=== PATIENT | female | born 1990 | race American Indian/Alaskan Native ===

== ENCOUNTER 2020-05-21 18:07 | Emergency (ER) | payer MEDICAID ==
--- NOTE | 2020-05-21 19:13 | EDM.PDOC ---
ED HPI GENERAL MEDICAL PROBLEM - General Chief Complaint: Skin Complaint Stated Complaint: PAINFUL LUMP UNDER LEFT ARM Time Seen by Provider: 05/21/20 19:12 Source of Information: Reports: Patient, RN, RN Notes Reviewed History Limitations: Reports: No Limitations - History of Present Illness INITIAL COMMENTS - FREE TEXT/NARRATIVE: Patient is a 30-year-old female who presents to ER with complaint of a red painful lump under the left armpit. Patient states she noticed it last night. States she has had 1 in the past under one of her breasts which her primary care provider did open up and drain. Patient denies any fever or chills, nausea vomiting, diarrhea. Patient denies any history of MRSA that she is aware of. States only allergy is to codeine. Onset Date: 05/20/20 Left Axillary Pain Score (Numeric/FACES): 9 - Related Data Allergies Allergy/AdvReac Type Severity Reaction Status Date / Time codeine Allergy Cannot Verified 05/21/20 18:18 Remember Home Meds: Home Meds lamoTRIgine [Lamotrigine] 100 mg PO BID 05/21/20 [History] Past Medical History Neurological History: Reports: Seizure Psychiatric History: Reports: Depression - Infectious Disease History Infectious Disease History: Reports: None Social & Family History - Tobacco Use Tobacco Use Status *Q: Never Tobacco User - Caffeine Use Caffeine Use: Reports: Tea - Recreational Drug Use Recreational Drug Use: No ED ROS GENERAL - Review of Systems Review Of Systems: Comprehensive ROS is negative, except as noted in HPI. ED EXAM, SKIN/RASH Exam: See Below Exam Limited By: No Limitations General Appearance: Alert, WD/WN, No Apparent Distress Eye Exam: Bilateral Eye: EOMI, Normal Inspection Ears: Normal External Exam, Hearing Grossly Normal Nose: Normal Inspection Throat/Mouth: Normal Inspection, Normal Voice, No Airway Compromise Head: Atraumatic, Normocephalic Neck: Normal Inspection, Supple, Non-Tender, Full Range of Motion Respiratory/Chest: No Respiratory Distress, Lungs Clear, Normal Breath Sounds, No Accessory Muscle Use, Chest Non-Tender Cardiovascular: Normal Peripheral Pulses, Regular Rate, Rhythm, No Edema, No Gallop, No JVD, No Murmur, No Rub Peripheral Pulses: 2+: Radial (L), Radial (R) GI/Abdominal: Normal Bowel Sounds, Soft, Non-Tender (Female) Exam: Deferred Rectal (Female) Exam: Deferred Back Exam: Normal Inspection, Full Range of Motion Extremities: Normal Inspection, Normal Range of Motion, Non-Tender, No Pedal Edema, Normal Capillary Refill Neurological: Alert, Oriented, CN II-XII Intact, Normal Cognition, Normal Gait, Normal Reflexes, No Motor/Sensory Deficits Psychiatric: Normal Affect, Normal Mood Skin: Warm, Dry, Normal Color, No Rash, Other (0.5cm abscess to left axillary area) Location, Skin: Upper Extremity, Left Associated features: Warmth, Tenderness Lymphatic: No Adenopathy ED SKIN PROCEDURES - I&D Site: left axillary Skin Prep: Chlorhexidine (Hibiciens) Local Anesthesia: Lidocaine: Other (none) Area Incised With: Other (manual pressure) Drainage: Purulent, Moderate Amount Probed to Break Up Loculations: Yes Packed With: None Sterile Dressing: Other (bandage) Complications: No Course - Vital Signs Last Recorded V/S: Last Vital Signs Temp 97 F 05/21/20 18:14 Pulse 72 05/21/20 18:14 Resp 16 05/21/20 18:14 BP 104/54 L 05/21/20 18:14 Pulse Ox 100 05/21/20 18:14 Departure - Departure Time of Disposition: 19:20 Disposition: Home, Self-Care 01 Condition: Good Clinical Impression: Abscess - Discharge Information *PRESCRIPTION DRUG MONITORING PROGRAM REVIEWED*: No *COPY OF PRESCRIPTION DRUG MONITORING REPORT IN PATIENT POOJA: No Instructions: Skin Abscess, [id number] Forms: ED Department Discharge Additional Instructions: Keep area clean and dry May use over the counter antibiotic ointment to the area If it appears to be getting larger, worse, more painful, you may start antibiotics Follow up with your primary care facility if no improvement Sepsis Event Note (ED) - Evaluation Sepsis Screening Result: No Definite Risk - Focused Exam Vital Signs: Vital Signs Temp Pulse Resp BP Pulse Ox 05/21/20 18:14 97 F 72 16 104/54 L 100
== END 2020-05-21 19:41 | disposition home or self-care (01) ==
LOC: DL.ED 18:07
DX: L02.412 Cutaneous abscess of left axilla (principal); R56.9 Unspecified convulsions; Z79.899 Other long term (current) drug therapy; Z88.5 Allergy status to narcotic agent
CPT/HCPCS: 87070; 99283

== ENCOUNTER 2020-06-13 17:25 | Emergency (ER) | payer MEDICAID ==
--- NOTE | 2020-06-13 19:27 | EDM.PDOC ---
ED HPI GENERAL MEDICAL PROBLEM - General Chief Complaint: Chemical Exposure Stated Complaint: CHEMICALS INHAILED AT WORK Time Seen by Provider: 06/13/20 19:05 Source of Information: Reports: Patient, RN History Limitations: Reports: No Limitations - History of Present Illness INITIAL COMMENTS - FREE TEXT/NARRATIVE: ED with c/o congestion and sorethroat patrick Thursday. 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 Also rash on arms. States wearing make and gloves with use. - Related Data Allergies Allergy/AdvReac Type Severity Reaction Status Date / Time codeine Allergy Cannot Verified 06/13/20 17:51 Remember Home Meds: Home Meds lamoTRIgine [Lamotrigine] 100 mg PO BID 05/21/20 [History] Past Medical History Neurological History: Reports: Seizure Psychiatric History: Reports: Depression - Infectious Disease History Infectious Disease History: Reports: None Social & Family History - Tobacco Use Tobacco Use Status *Q: Never Tobacco User Second Hand Smoke Exposure: No - Caffeine Use Caffeine Use: Reports: Coffee, Energy Drinks - Recreational Drug Use Recreational Drug Use: No ED ROS GENERAL - Review of Systems Review Of Systems: Comprehensive ROS is negative, except as noted in HPI. ED EXAM, BURN/SMOKE INHALATION - Physical Exam Exam: See Below Exam Limited By: No Limitations General Appearance: Alert, No Apparent Distress Eye Exam: Bilateral Eye: EOMI, PERRL Ears (Abbreviated): Normal External Exam, Normal TMs Mouth/Throat: No: Oral Inflammation, Oral Ulcers, Tongue Swelling, Tonsillar Exudates Head: No Symptoms Neck: No Symptoms Respiratory: No Respiratory Distress, Lungs Clear, Normal Breath Sounds Cardiovascular: Normal Peripheral Pulses, Regular Rate, Rhythm GI/Abdominal: Normal Bowel Sounds Extremities: Normal Inspection Neurological: Alert, Oriented Psychiatric: Normal Affect Skin Exam: Warm, Dry, Rash (light red raised rash bilateral inner forearms above glove line, 3mm x 3cm .) Course - Vital Signs Last Recorded V/S: Last Vital Signs Temp 98.3 F 06/13/20 17:51 Pulse 94 06/13/20 17:51 Resp 16 06/13/20 17:51 BP 119/58 L 06/13/20 17:51 Pulse Ox 96 06/13/20 17:51 - Orders/Labs/Meds Orders: Active Orders 24 hr Category Date Time Status CULTURE STREP A CONFIRMATION [RM] Stat Lab 06/13/20 19:00 Results STREP SCRN A RAPID W CULT CONF [RM] Stat Lab 06/13/20 19:00 Results Departure - Departure Time of Disposition: 19:24 Disposition: Home, Self-Care 01 Condition: Good Clinical Impression: Congestion of nasal sinus, Exposure to chemical irritant - Discharge Information *PRESCRIPTION DRUG MONITORING PROGRAM REVIEWED*: No *COPY OF PRESCRIPTION DRUG MONITORING REPORT IN PATIENT POOJA: No Instructions: Chemical Inhalation Injury, Adult Forms: ED Department Discharge Additional Instructions: Wear mask when around chemicals trial over counter allergy medication for congestion , similar to Loratadine per label instructions good hand washing always wear gloves if using chemical clinic follow up as needed Sepsis Event Note (ED) - Evaluation Sepsis Screening Result: No Definite Risk - My Orders Last 24 Hours: My Active Orders 06/13/20 19:00 CULTURE STREP A CONFIRMATION [RM] Stat STREP SCRN A RAPID W CULT CONF [RM] Stat - Assessment/Plan Last 24 Hours: My Active Orders 06/13/20 19:00 CULTURE STREP A CONFIRMATION [RM] Stat STREP SCRN A RAPID W CULT CONF [RM] Stat
== END 2020-06-13 19:47 | disposition home or self-care (01) ==
LOC: DL.ED 17:25
DX: R09.81 Nasal congestion (principal); R06.7 Sneezing; R05 Cough; R21 Rash and other nonspecific skin eruption; Z77.098 Contact with and (suspected) exposure to other hazardous, chiefly nonmedicinal, chemicals; Z88.5 Allergy status to narcotic agent
CPT/HCPCS: 87081; 87430; 99283

== ENCOUNTER 2021-09-27 03:48 | Emergency (ER) | payer MEDICAID ==
[2021-09-27] MEDS ORDERED: Ondansetron 4 MG Tab.DIS PO ONE (03:49)
[2021-09-27] MEDS ORDERED: Ondansetron 4 MG/2 ML SDV IVPUSH ONE (03:56)
[2021-09-27] MEDS ORDERED: Famotidine 20 MG/2 ML SDV IVPUSH ONE (03:57)
[2021-09-27 05:12] LABS: ANION GAP 15.8 mEq/L (7-13); CHLORIDE,CL 103 mmol/L (98-107); SODIUM,NA 141 mmol/L (136-145)
[2021-09-27] MEDS ORDERED: Ondansetron 4 MG Tab.DIS ONE (05:55)
== END 2021-09-27 06:03 | disposition home or self-care (01) ==
LOC: DL.ED 03:48
DX: R11.2 Nausea with vomiting, unspecified (principal); Z88.5 Allergy status to narcotic agent
CPT/HCPCS: 36415; 80053; 82150; 83605; 83690; 84703; 85025; 96374; 96375; 99283; 99284; A9270; J2405; J3490

== ENCOUNTER 2021-12-22 00:54 | Emergency (ER) | payer MEDICAID | END 2021-12-22 01:40 | disposition home or self-care (01) | LOC: DL.ED 00:54 | DX: S96.912A Strain of unspecified muscle and tendon at ankle and foot level, left foot, initial encounter (principal); Z88.5 Allergy status to narcotic agent; Z79.899 Other long term (current) drug therapy; X50.9XXA Other and unspecified overexertion or strenuous movements or postures, initial encounter | CPT/HCPCS: 73610-LT; 99283 ==

== ENCOUNTER 2022-02-26 02:31 | Emergency (ER) | payer MEDICAID ==
[2022-02-26 03:48] LABS: ANION GAP 16.4 mEq/L (7-13); CHLORIDE,CL 105 mmol/L (98-107); SODIUM,NA 139 mmol/L (136-145)
[2022-02-26 03:49] LABS: ESTIMATED GFR 107 mL/min (>=60)
[2022-02-26 03:52] LABS: CORONAVIRUS COVID-19 NAA NEGATIVE (NEGATIVE)
[2022-02-26 04:30] LABS: AMPHETAMINES,URINE NEGATIVE (NEGATIVE); BARBITURATES,URINE NEGATIVE (NEGATIVE); BENZODIAZEPINE,URINE NEGATIVE (NEGATIVE); MDMA (ECSTASY), URINE NEGATIVE (NEGATIVE); METHADONE,URINE NEGATIVE (NEGATIVE); METHAMPHETAMINES,URINE NEGATIVE (NEGATIVE); OPIATES,URINE NEGATIVE (NEGATIVE); OXYCODONE,URINE NEGATIVE (NEGATIVE); PHENCYCLIDINE,URINE NEGATIVE (NEGATIVE); TCA,URINE NEGATIVE (NEGATIVE)
[2022-02-26] MEDS: Nitrofurantoin Monohydrate/Macrocrystalline 100 MG Cap PO ONE (05:10)
== END 2022-02-26 05:13 | disposition home or self-care (01) ==
LOC: DL.ED 02:31
DX: N30.00 Acute cystitis without hematuria (principal); Z20.822 Contact with and (suspected) exposure to COVID-19; Z79.899 Other long term (current) drug therapy
CPT/HCPCS: 0240U; 36415; 80053; 80305-QW; 81001; 83735; 84443; 84703; 85025; 86140; 87086; 99283; A9270-GY

== ENCOUNTER 2022-12-28 19:31 | Emergency (ER) | payer MEDICAID | END 2022-12-28 22:23 | disposition home or self-care (01) | LOC: DL.ED 19:31 | DX: J06.9 Acute upper respiratory infection, unspecified (principal); G40.909 Epilepsy, unspecified, not intractable, without status epilepticus; E66.9 Obesity, unspecified; Z88.5 Allergy status to narcotic agent; Z79.899 Other long term (current) drug therapy; Z68.42 Body mass index [BMI] 45.0-49.9, adult | CPT/HCPCS: 87081; 87430; 99284 ==

== ENCOUNTER 2023-03-28 11:31 | Emergency (ER) | payer MEDICAID ==
[2023-03-28 13:26] LABS: BASOPHILS PERCENT AUTO 0.3 % (0.0-1.0); EOSINOPHILS PERCENT AUTO 1.9 % (1.0-3.0); HEMATOCRIT 41.5 % (37.0-47.0); HEMOGLOBIN 13.3 g/dL (12.0-16.0); LYMPHOCYTES PERCENT AUTO 37.2 % (20.5-50.1); MEAN CORPUSCULAR HEMOGLOBIN 24.7 pg (27.0-34.0); MONOCYTES PERCENT AUTO 9.1 % (2-8); NEUTROPHILS PERCENT AUTO 51.5 % (42.2-75.2); PLATELET COUNT,PLT 283 10^3/uL (150-450); RED BLOOD CELL COUNT 5.39 10^6/uL (4.2-5.4); WHITE BLOOD CELL COUNT,WBC 6.5 10^3/uL (5.0-10.0)
[2023-03-28 13:30] LABS: APPEARANCE,URINE CLEAR (CLEAR); BILIRUBIN,URINE NEGATIVE (NEGATIVE); COLOR,URINE YELLOW (YELLOW); GLUCOSE,URINE NEGATIVE (NEGATIVE); KETONES,URINE NEGATIVE (NEGATIVE); LEUKOCYTE ESTERASE,URINE NEGATIVE (NEGATIVE); NITRITE,URINE NEGATIVE (NEGATIVE); OCCULT BLOOD,URINE NEGATIVE (NEGATIVE); PH,URINE 6.5 (5.0-9.0); PROTEIN,URINE NEGATIVE (NEGATIVE); UROBILINOGEN,URINE 0.2 mg/dL (0.2-1.0)
[2023-03-28 13:33] LABS: AMPHETAMINES,URINE NEGATIVE (NEGATIVE); BARBITURATES,URINE NEGATIVE (NEGATIVE); BENZODIAZEPINE,URINE NEGATIVE (NEGATIVE); MDMA (ECSTASY), URINE NEGATIVE (NEGATIVE); METHADONE,URINE NEGATIVE (NEGATIVE); METHAMPHETAMINES,URINE NEGATIVE (NEGATIVE); OPIATES,URINE NEGATIVE (NEGATIVE); OXYCODONE,URINE NEGATIVE (NEGATIVE); PHENCYCLIDINE,URINE NEGATIVE (NEGATIVE); TCA,URINE NEGATIVE (NEGATIVE)
[2023-03-28 13:55] LABS: A/G RATIO 0.8; ALBUMIN 3.5 g/dL (3.4-5.0); ANION GAP 9.7 mEq/L (7-13); BILIRUBIN TOTAL 0.3 mg/dL (0.2-1.0); BUN/CREATININE RATIO 15.5 (No establ ref range); CALCIUM 8.9 mg/dL (8.5-10.1); CREATININE 0.71 mg/dL (0.55-1.02); EST CRCL DRUG DOSING (CG) 106.49 mL/min; MAGNESIUM 2.1 mg/dL (1.8-2.4); POTASSIUM,K 3.7 mmol/L (3.5-5.1); PROTEIN TOTAL,TP 7.8 g/dL (6.4-8.2); TSH ULTRASENSITIVE 0.51 uIU/mL (0.36-3.74)
== END 2023-03-28 14:45 | disposition home or self-care (01) ==
LOC: DL.ED 11:31
DX: R55 Syncope and collapse (principal); E66.9 Obesity, unspecified; Z68.41 Body mass index [BMI] 40.0-44.9, adult; Z88.5 Allergy status to narcotic agent; Z79.899 Other long term (current) drug therapy
CPT/HCPCS: 36415; 71045; 80053; 80305-QW; 81003; 81025; 83735; 84443; 84484; 85025; 93010; 99284

== ENCOUNTER 2023-05-31 17:31 | Emergency (ER) | payer MEDICAID ==
[2023-05-31 19:00] LABS: CORONAVIRUS COVID-19 NAA NEGATIVE (NEGATIVE); INFLUENZA A NAA NEGATIVE (NEGATIVE); INFLUENZA B NAA NEGATIVE (NEGATIVE); RESPIRATORY SYNCYTIAL VIR NAA NEGATIVE (NEGATIVE)
== END 2023-05-31 19:13 | disposition home or self-care (01) ==
LOC: DL.ED 17:31
DX: J06.9 Acute upper respiratory infection, unspecified (principal); R05.2 Subacute cough; F17.210 Nicotine dependence, cigarettes, uncomplicated; E66.9 Obesity, unspecified; Z79.899 Other long term (current) drug therapy; Z88.5 Allergy status to narcotic agent
CPT/HCPCS: 0241U; 99283

== ENCOUNTER 2023-07-25 19:03 | Emergency (ER) | payer MEDICAID ==
[2023-07-25] MEDS: Sodium Chloride 0.9% 1,000 ML IV SCH (19:26)
[2023-07-25] MEDS: Ketorolac 30 MG/ML SDV IVPUSH ONE (19:26)
[2023-07-25 19:30] LABS: BASOPHILS PERCENT AUTO 0.4 % (0.0-1.0); EOSINOPHILS PERCENT AUTO 1.9 % (1.0-3.0); HEMATOCRIT 39.7 % (37.0-47.0); HEMOGLOBIN 12.9 g/dL (12.0-16.0); LYMPHOCYTES PERCENT AUTO 34.8 % (20.5-50.1); MEAN CORPUSCULAR HEMOGLOBIN 25.5 pg (27.0-34.0); MEAN CORPUSCULAR HGB CONC 32.5 g/dL (33.0-35.0); MEAN CORPUSCULAR VOLUME 78.6 fL (80-100); MONOCYTES PERCENT AUTO 10.3 % (2-8); NEUTROPHILS PERCENT AUTO 52.6 % (42.2-75.2); PLATELET COUNT,PLT 302 10^3/uL (150-450); RED BLOOD CELL COUNT 5.05 10^6/uL (4.2-5.4); WHITE BLOOD CELL COUNT,WBC 7.4 10^3/uL (5.0-10.0)
[2023-07-25 19:31] LABS: APPEARANCE,URINE SLIGHTLY CLOUDY (CLEAR); BILIRUBIN,URINE NEGATIVE (NEGATIVE); COLOR,URINE YELLOW (YELLOW); GLUCOSE,URINE NEGATIVE (NEGATIVE); KETONES,URINE NEGATIVE (NEGATIVE); LEUKOCYTE ESTERASE,URINE SMALL (NEGATIVE); NITRITE,URINE NEGATIVE (NEGATIVE); OCCULT BLOOD,URINE SMALL (NEGATIVE); PROTEIN,URINE NEGATIVE (NEGATIVE); UROBILINOGEN,URINE 0.2 mg/dL (0.2-1.0)
[2023-07-25 19:47] LABS: AMORPHOUS SEDIMENT,URINE FEW /HPF (NOT SEEN); BACTERIA,URINE FEW /HPF (0-FEW/HPF); EPITHELIAL CELLS,URINE MODERATE /HPF (NOT SEEN); MUCUS,URINE MODERATE /LPF (NOT SEEN); RBC,URINE 0-5 /HPF (0-5)
[2023-07-25 19:49] LABS: A/G RATIO 0.9; ALANINE AMINOTRANSFERASE,ALT 21 U/L (14-59); ALBUMIN 3.5 g/dL (3.4-5.0); ALKALINE PHOSPHATASE 66 U/L (46-116); ANION GAP 13.6 mEq/L (7-13); ASPARTATE AMNIOTRANSFERASE,AST 11 U/L (15-37); BILIRUBIN TOTAL 0.1 mg/dL (0.2-1.0); BLOOD UREA NITROGEN,BUN 8 mg/dL (7-18); BUN/CREATININE RATIO 11.3 (No establ ref range); CALCIUM 8.8 mg/dL (8.5-10.1); CARBON DIOXIDE,CO2 27 mmol/L (21-32); CHLORIDE,CL 105 mmol/L (98-107); CREATININE 0.71 mg/dL (0.55-1.02); EST CRCL DRUG DOSING (CG) 102.36 mL/min; ESTIMATED GFR 116 mL/min (>=60); GLUCOSE RANDOM 122 mg/dL (70-99); POTASSIUM,K 3.6 mmol/L (3.5-5.1); PROTEIN TOTAL,TP 7.5 g/dL (6.4-8.2); SODIUM,NA 142 mmol/L (136-145)
[2023-07-25 19:51] LABS: HCG QUALITATIVE,SERUM NEGATIVE (NEGATIVE)
== END 2023-07-25 20:17 | disposition home or self-care (01) ==
LOC: DL.ED 19:03
DX: R10.32 Left lower quadrant pain (principal); E66.9 Obesity, unspecified; Z79.84 Long term (current) use of oral hypoglycemic drugs; Z79.899 Other long term (current) drug therapy; Z88.5 Allergy status to narcotic agent
CPT/HCPCS: 36415; 80053; 81001; 84703; 85025; 87086; 96361; 96374; 99284; J1885; J7030; 99283

== ENCOUNTER 2023-09-28 18:40 | Emergency (ER) | payer MEDICAID | END 2023-09-28 20:15 | disposition home or self-care (01) | LOC: DL.ED 18:40 | DX: S51.852A Open bite of left forearm, initial encounter (principal); Z88.5 Allergy status to narcotic agent; Z79.899 Other long term (current) drug therapy; W55.01XA Bitten by cat, initial encounter | CPT/HCPCS: 99283 ==

== ENCOUNTER 2023-12-28 11:46 | Emergency (ER) | payer MEDICAID ==
[2023-12-28] MEDS: Take Home: Cephalexin 500 MG Cap, 6 Cap Pack PO ONE (14:27)
[2023-12-28] MEDS: diphenhydrAMINE 25 MG Tab PO ONE (14:27)
== END 2023-12-28 14:31 | disposition home or self-care (01) ==
LOC: DL.ED 11:46
DX: L03.116 Cellulitis of left lower limb (principal); E66.9 Obesity, unspecified; Z68.42 Body mass index [BMI] 45.0-49.9, adult; Z88.8 Allergy status to other drugs, medicaments and biological substances; Z79.84 Long term (current) use of oral hypoglycemic drugs; Z79.899 Other long term (current) drug therapy; W57.XXXA Bitten or stung by nonvenomous insect and other nonvenomous arthropods, initial encounter
CPT/HCPCS: 99282; 99283; A9270-GY

== ENCOUNTER 2024-03-16 00:04 | Emergency (ER) | payer MEDICAID ==
[2024-03-16] MEDS: Acetaminophen 325 MG Tab PO ONE (00:32)
== END 2024-03-16 01:04 | disposition home or self-care (01) ==
LOC: DL.ED 00:04
DX: S61.210A Laceration without foreign body of right index finger without damage to nail, initial encounter (principal); E66.9 Obesity, unspecified; Z68.42 Body mass index [BMI] 45.0-49.9, adult; Z88.5 Allergy status to narcotic agent; Z79.84 Long term (current) use of oral hypoglycemic drugs; Z79.899 Other long term (current) drug therapy; W26.0XXA Contact with knife, initial encounter
CPT/HCPCS: 12001; 99282; A9270

== ENCOUNTER 2024-04-07 17:06 | Emergency (ER) | payer MEDICAID ==
[2024-04-07 18:06] LABS: APPEARANCE,URINE SLIGHTLY CLOUDY (CLEAR); BILIRUBIN,URINE NEGATIVE (NEGATIVE); COLOR,URINE YELLOW (YELLOW); GLUCOSE,URINE NEGATIVE (NEGATIVE); KETONES,URINE 40 (NEGATIVE); LEUKOCYTE ESTERASE,URINE NEGATIVE (NEGATIVE); NITRITE,URINE NEGATIVE (NEGATIVE); OCCULT BLOOD,URINE TRACE-LYSED (NEGATIVE); PROTEIN,URINE TRACE (NEGATIVE); UROBILINOGEN,URINE 0.2 mg/dL (0.2-1.0)
[2024-04-07 18:22] LABS: AMORPHOUS SEDIMENT,URINE MANY /HPF (NOT SEEN); BACTERIA,URINE FEW /HPF (0-FEW/HPF); CALCIUM OXALATE CRYSTALS,URINE FEW /HPF (NOT SEEN); EPITHELIAL CELLS,URINE MODERATE /HPF (NOT SEEN)
== END 2024-04-07 18:26 | disposition home or self-care (01) ==
LOC: DL.ED 17:06
DX: Z32.01 Encounter for pregnancy test, result positive (principal); E66.9 Obesity, unspecified; Z79.84 Long term (current) use of oral hypoglycemic drugs; Z79.899 Other long term (current) drug therapy; Z88.5 Allergy status to narcotic agent
CPT/HCPCS: 81001; 81025; 99284

== ENCOUNTER 2024-04-24 22:18 | Emergency (ER) | payer MEDICAID | END 2024-04-25 00:17 | LOC: DL.ED 22:18 | DX: Z53.21 Procedure and treatment not carried out due to patient leaving prior to being seen by health care provider (principal) ==

== ENCOUNTER 2024-07-19 21:02 | Emergency (ER) | payer MEDICAID ==
[2024-07-19] MEDS: Oxymetazoline 0.05% Nasal Spray 30 ML Bottle NAS ONE (21:43)
== END 2024-07-19 21:45 | disposition home or self-care (01) ==
LOC: DL.ED 21:02
DX: B34.9 Viral infection, unspecified (principal); Z88.5 Allergy status to narcotic agent; Z79.84 Long term (current) use of oral hypoglycemic drugs; Z79.899 Other long term (current) drug therapy
CPT/HCPCS: 99283; A9270

== ENCOUNTER 2024-07-24 20:13 | Emergency (ER) | payer MEDICAID | END 2024-07-24 21:36 | disposition home or self-care (01) | LOC: DL.ED 20:13 | DX: O99.891 Other specified diseases and conditions complicating pregnancy (principal); M62.838 Other muscle spasm; Z79.899 Other long term (current) drug therapy; Z79.84 Long term (current) use of oral hypoglycemic drugs; Z88.6 Allergy status to analgesic agent; Z3A.22 22 weeks gestation of pregnancy | CPT/HCPCS: 99283 ==

== ENCOUNTER 2024-09-26 21:46 | Emergency (ER) | payer MEDICAID ==
[2024-09-26] MEDS: Cephalexin 500 MG Cap PO ONE (23:08)
== END 2024-09-26 23:09 | disposition home or self-care (01) ==
LOC: DL.ED 21:46
DX: O91.113 Abscess of breast associated with pregnancy, third trimester (principal); E66.9 Obesity, unspecified; Z68.36 Body mass index [BMI] 36.0-36.9, adult; Z79.84 Long term (current) use of oral hypoglycemic drugs; Z88.5 Allergy status to narcotic agent; Z3A.31 31 weeks gestation of pregnancy
CPT/HCPCS: 10060; 99282; 99283; A9270

== ENCOUNTER 2024-11-22 05:48 | Observation (INO) | payer MEDICAID ==
[2024-11-22 08:03] LABS: PLATELET COUNT,PLT 235.0 10^3/uL (150-450); RED BLOOD CELL COUNT 4.41 10^6/uL (4.2-5.4); WHITE BLOOD CELL COUNT,WBC 8.3 10^3/uL (5.0-10.0)
[2024-11-22] MEDS ORDERED: fentaNYL 100 MCG/2 ML SDV IVPUSH PRN (13:15)
[2024-11-22] MEDS ORDERED: Carboprost Tromethamine 250 MCG/1 ML Amp IM PRN (13:15)
[2024-11-22] MEDS ORDERED: Oxytocin/Normal Saline 30 UNIT/500 ML BAG IV SCH (13:15)
[2024-11-22] MEDS ORDERED: Sodium Chloride 0.9% 10 ML Syringe FLUSH PRN (13:15)
[2024-11-22] MEDS ORDERED: Lactated Ringers 1,000 ML IV SCH (13:15)
[2024-11-22] MEDS ORDERED: Lactated Ringers 1,000 ML IV ONE (13:15)
[2024-11-22] MEDS: Misoprostol 50 MCG (1/2 of 100 MCG) Tab PO SCH (13:26)
[2024-11-22] MEDS: Ondansetron 4 MG/2 ML SDV IVPUSH PRN (17:25)
[2024-11-22] MEDS: Misoprostol 50 MCG (1/2 of 100 MCG) Tab PO PRN (17:40)
[2024-11-22] MEDS: Misoprostol 50 MCG (1/2 of 100 MCG) Tab VAG ONE (22:34)
[2024-11-23] MEDS: Nalbuphine HCl 10 MG/ 1ML Amp IM PRN (09:22)
== END 2024-11-23 14:34 | disposition home or self-care (01) ==
LOC: DL.OB 07:40
PROVIDERS: ADMIT Family Medicine; ATTEND Family Medicine
DX: Z34.93 Encounter for supervision of normal pregnancy, unspecified, third trimester (principal); E66.9 Obesity, unspecified; F17.210 Nicotine dependence, cigarettes, uncomplicated; Z79.84 Long term (current) use of oral hypoglycemic drugs; Z88.5 Allergy status to narcotic agent; Z68.30 Body mass index [BMI] 30.0-30.9, adult; Z79.899 Other long term (current) drug therapy
CPT/HCPCS: 36415; 59025; 76819; 85027; A9270-GY; J2300; J2405

== ENCOUNTER 2024-11-26 21:39 | Inpatient (IN) | payer MEDICAID ==
[2024-11-26] MEDS ORDERED: Carboprost Tromethamine 250 MCG/1 ML Amp IM PRN (23:01)
[2024-11-26] MEDS ORDERED: Nalbuphine HCl 10 MG/ 1ML Amp IM PRN (23:01)
[2024-11-26] MEDS ORDERED: Sodium Chloride 0.9% 10 ML Syringe FLUSH PRN (23:01)
[2024-11-26] MEDS ORDERED: Oxytocin/Lactated Ringers 30 UNIT/500 ML BAG IV SCH (23:15)
[2024-11-26] MEDS: Lactated Ringers 1,000 ML IV ONE (23:18)
[2024-11-26] MEDS: Lactated Ringers 1,000 ML IV SCH (23:46)
[2024-11-27] MEDS: Ondansetron 4 MG/2 ML SDV IVPUSH PRN (00:29)
[2024-11-27] MEDS: Oxytocin/Normal Saline 30 UNIT/500 ML BAG IV SCH (02:04)
[2024-11-27] MEDS ORDERED: Carboprost Tromethamine 250 MCG/1 ML Amp IM PRN (11:43)
[2024-11-27] MEDS ORDERED: Oxytocin 10 Units/1 ML SDV IM PRN (11:43)
[2024-11-27] MEDS ORDERED: Sodium Chloride 0.9% 10 ML Syringe FLUSH PRN (11:43)
[2024-11-27] MEDS: Benzocaine/Menthol 20%-0.5% Spray 78 GM Cannister TOP PRN (16:18)
[2024-11-27] MEDS: Witch Hazel Medicated Pads 100/Jar TOP PRN (16:19)
[2024-11-27] MEDS: Measles, Mumps & Rubella Vaccine 0.5 ML SDV SUBCUT ONE (18:30)
[2024-11-28] MEDS: Prenatal Multivitamin with Calcium/Folic Acid/Iron Tab PO SCH (12:36)
== END 2024-11-29 17:30 | disposition home or self-care (01) | DRG 807 ==
LOC: DL.OBCHECK 21:39 → DL.OB 23:01 → OBSVTOIN 11-27 11:19 → DL.MS 11-29 07:30
PROVIDERS: ADMIT Student in an Organized Health Care Education/Training Program; ATTEND Student in an Organized Health Care Education/Training Program
PROC: 10907ZC Drainage of Amniotic Fluid, Therapeutic from Products of Conception, Via Natural or Artificial Opening (ICD-10-PCS; principal; 2024-11-26)
PROC: 3E0234Z Introduction of Serum, Toxoid and Vaccine into Muscle, Percutaneous Approach (ICD-10-PCS; principal; 2024-11-26)
PROC: 10E0XZZ Delivery of Products of Conception, External Approach (ICD-10-PCS; principal; 2024-11-26)
PROC: 0UQKXZZ Repair Hymen, External Approach (ICD-10-PCS; principal; 2024-11-26)
PROC: 3E0R3BZ Introduction of Anesthetic Agent into Spinal Canal, Percutaneous Approach (ICD-10-PCS; principal; 2024-11-26)
DX: O80 Encounter for full-term uncomplicated delivery (principal); G40.909 Epilepsy, unspecified, not intractable, without status epilepticus; O26.893 Other specified pregnancy related conditions, third trimester; E88.819 Insulin resistance, unspecified; O99.210 Obesity complicating pregnancy, unspecified trimester; E66.2 Morbid (severe) obesity with alveolar hypoventilation; O35.BXX0 Maternal care for other (suspected) fetal abnormality and damage, fetal cardiac anomalies, not applicable or unspecified; Z88.5 Allergy status to narcotic agent; Z3A.40 40 weeks gestation of pregnancy; O99.344 Other mental disorders complicating childbirth; Z37.0 Single live birth; Z3A.39 39 weeks gestation of pregnancy; Z23 Encounter for immunization; Z88.8 Allergy status to other drugs, medicaments and biological substances; O99.214 Obesity complicating childbirth; Z79.899 Other long term (current) drug therapy; Z79.84 Long term (current) use of oral hypoglycemic drugs; O70.0 First degree perineal laceration during delivery
CPT/HCPCS: 51701; 51702; 59409; 90471; 90707; A9270-GY; J2405; J2590; J7120